=== PATIENT | female | born 1985 | race African-American/Black ===

== ENCOUNTER 2017-04-09 14:59 | Emergency (ER) | payer OTHER ==
[~2017-04-09] VITALS: Ht 167.6 cm; Wt 117.9 kg
[~2017-04-09 14:59] MED LIST: KEFLEX500 MG PO; KEPPRA 500 MG500 M1 PO; KEPPRA 500 MG500 MG PO; KEPPRA1000 MG PO; NAPROSYN500 MG PO; NO HOME MEDS; NORCO 5-325 TA1 EACH PO; PERCOCET 5-3251 EACH PO; TOPAMAX 25 MG T25 M1 PO; TOPAMAX200 MG PO; TOPAMAX25 M1 PO; VICODIN PO; XANAX 0.25 MG0.25 MG PO; XANAX 0.5 MG0.5 M1 PO
[2017-04-09] MEDS ORDERED: LAMICTAL100 MG PO (15:11)
[2017-04-09] MEDS ORDERED: FLONASE 0.05%50 MCG NASAL (15:55)
[2017-04-09] MEDS ORDERED: MUCINEX D TABL1 EAC1 PO (15:55)
== END 2017-04-09 16:06 | disposition home or self-care (01) ==
LOC: ER 14:59
DX: J06.9 Acute upper respiratory infection, unspecified (principal); Z87.891 Personal history of nicotine dependence

== ENCOUNTER 2018-08-16 01:02 | Emergency (ER) | payer OTHER ==
[~2018-08-16] VITALS: Ht 170.2 cm; Wt 72.6 kg
[~2018-08-16 01:02] MED LIST changes: +FLONASE 0.05%50 MCG NASAL; +LAMICTAL100 MG PO; +MUCINEX D TABL1 EAC1 PO
[2018-08-16] MEDS ORDERED: PREDNISONE 20 M20 MG PO (04:11)
[2018-08-16 04:41] VITALS: BP 00/00
== END 2018-08-16 09:53 | disposition home or self-care (01) ==
LOC: ER 01:02
DX: S40.861A Insect bite (nonvenomous) of right upper arm, initial encounter (principal); S40.862A Insect bite (nonvenomous) of left upper arm, initial encounter; Z87.891 Personal history of nicotine dependence; W57.XXXA Bitten or stung by nonvenomous insect and other nonvenomous arthropods, initial encounter; Y93.89 Activity, other specified; Y92.89 Other specified places as the place of occurrence of the external cause; Y99.8 Other external cause status